=== PATIENT | male | born 1970 | race Caucasian/White ===

== ENCOUNTER 2017-04-20 22:15 | Emergency (ER) | payer BC ==
[2017-04-20] MEDS ORDERED: Nitroglycerin 0.4 MG Tab.SL SL ONE (22:22)
[2017-04-20] MEDS ORDERED: Alum Hydroxide/Mag Hydroxide 10 ML, Lidocaine 2% 10 ML, Promethazine 12.5 MG PO ONE ×3 (22:22)
[2017-04-20] MEDS ORDERED: Aspirin 81 MG Tab.Chew PO ONE (22:22)
[2017-04-20] MEDS ORDERED: Sodium Chloride 0.9% 10 ML Syringe FLUSH PRN (22:23)
[2017-04-20] MEDS ORDERED: Sodium Chloride 0.9% 1,000 ML IV ONE (22:26)
--- NOTE | 2017-04-20 22:33 | EDM.PDOC ---
ED HPI GENERAL MEDICAL PROBLEM - General Chief Complaint: Chest Pain Stated Complaint: CHEST PAINS Time Seen by Provider: 04/20/17 22:20 Source of Information: Reports: Patient, Family, RN, RN Notes Reviewed History Limitations: Reports: No Limitations - History of Present Illness INITIAL COMMENTS - FREE TEXT/NARRATIVE: Patient presents the emergency room at [facility] complaining of substernal chest pain that radiates down the left arm. The patient states his symptoms began around 9 PM this evening. The patient does not have any cardiac history. The patient does not have a primary care provider. The patient denies any past medical history. The patient thinks that some of the symptoms may be related to anxiety due to current situations in his family. The patient states that he feels somewhat short of breath. The patient does smoke on a regular basis. The patient denies any nausea vomiting or diarrhea. Patient denies any back pain. The patient denies any focal neurological deficits. The patient states that the substernal chest pain feels like a pressure. The arm pain feels sharp and stabbing. The patient did not take any medications prior to presentation. 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: Reports: Other (see below) (None) left upper chest/arm Pain Score (Numeric/FACES): 5 Left Arm Pain Score (Numeric/FACES): 5 - Related Data Allergies Allergy/AdvReac Type Severity Reaction Status Date / Time No Known Allergies Allergy Verified 04/20/17 22:40 Home Meds: Home Meds Tamsulosin HCl 0.4 mg PO DAILY 04/20/17 [History] Social & Family History - Tobacco Use Years of Tobacco use: 20 - Alcohol Use Days Per Week of Alcohol Use: 7 Number of Drinks Per Day: 2 Total Drinks Per Week: 14 - Recreational Drug Use Recreational Drug Use: No ED ROS GENERAL - Review of Systems Review Of Systems: See Below Constitutional: Denies: Fever, Chills, Weakness Respiratory: Reports: Shortness of Breath. Denies: Cough, Sputum Cardiovascular: Reports: Chest Pain, Dyspnea on Exertion. Denies: Palpitations GI/Abdominal: Denies: Abdominal Pain, Nausea, Vomiting Skin: Reports: No Symptoms Neurological: Reports: No Symptoms. Denies: Dizziness, Headache, Numbness, Paresthesia, Tingling ED EXAM, GENERAL - Physical Exam Exam: See Below Exam Limited By: No Limitations General Appearance: Alert, Anxious, Obese Respiratory/Chest: No Respiratory Distress, Decreased Breath Sounds, Wheezing Cardiovascular: Normal Peripheral Pulses, Regular Rate, Rhythm, No Murmur Peripheral Pulses: 2+: Radial (L), Radial (R) GI/Abdominal: Soft, Non-Tender, Abnormal Bowel Sounds (Hyperactive) Neurological: Alert, Oriented Skin Exam: Warm, Dry, Intact, Normal Color, No Rash EKG INTERPRETATION EKG Date: 04/20/17 Time: 22:20 Rhythm: NSR Rate (Beats/Min): 93 [place]: Normal P-Wave: Present QRS: Normal ST-T: Normal QT: Normal MN/PQ Interval: 0.15 Comparison: NA - No Prior EKG EKG Interpretation Comments: 1. Normal Sinus Rhythm 2. Normal ECG Course - Vital Signs Last Recorded V/S: Last Vital Signs Temp 35.7 C 04/20/17 22:15 Pulse 92 04/20/17 22:15 Resp 20 04/20/17 22:15 BP 145/94 H 04/20/17 22:45 Pulse Ox 97 04/20/17 22:15 - Orders/Labs/Meds Orders: Active Orders 24 hr Category Date Time Status EKG 12 Lead [EKG Documentation Completion] [RC] STAT Care 04/20/17 22:27 Ordered RT Aerosol Therapy [RC] ASDIRECTED Care 04/20/17 23:20 Active Chest 1V Frontal [CR] Stat Exams 04/20/17 22:20 Taken Sodium Chloride 0.9% [Saline Flush] Med 04/20/17 22:23 Active 10 ml FLUSH ASDIRECTED PRN Peripheral IV Insertion Adult [OM.PC] Routine Oth 04/20/17 22:23 Ordered Medication Orders Sodium Chloride (Saline Flush) 10 ml FLUSH ASDIRECTED PRN PRN Reason: Keep Vein Open Labs: Laboratory Tests 04/20/17 04/20/17 04/20/17 Range/Units 22:38 22:38 22:38 WBC 5.7 (4.0-10.0) x10^3/uL RBC 4.18 L (4.5-6.0) x10^6/uL Hgb 13.8 L (14.0-18.0) g/dL Hct 39.4 L (40.0-52.0) % MCV 94.3 H (78.0-93.0) fL MCH 33.0 H (26.0-32.0) pg MCHC 35.0 (32.0-36.0) g/dL RDW Coeff of Zina 14.0 (10.0-15.0) % Plt Count 139 (130-400) x10^3/uL Neut % (Auto) 40.7 L (50.0-80.0) % Lymph % (Auto) 40.3 (25.0-50.0) % [place] % (Auto) 11.7 H (2.0-11.0) % Eos % (Auto) 5.9 H (0.0-4.0) % Baso % (Auto) 1.4 H (0.2-1.2) % Sodium 144 (136-145) mmol/L Potassium 3.9 (3.5-5.1) mmol/L Chloride 107 (98-107) mmol/L Carbon Dioxide 25 (21-32) mmol/L BUN 20 H (7-18) mg/dL Creatinine 1.3 (0.70-1.30) mg/dL Est Cr Clr Drug Dosing TNP Estimated GFR (MDRD) 59 Glucose 103 (74-106) mg/dL Lactic Acid 1.1 (0.4-2.0) mmol/L Calcium 7.8 L (8.5-10.1) mg/dL Creatine Kinase 157 (39-308) U/L Creatine Kinase Index 1.1 (0.0-4.0) % CK-MB (CK-2) 1.7 (0.0-3.6) ng/mL POC Troponin I (0.00-0.08) ng/mL C-Reactive Protein < 0.2 (<=0.9) mg/dL Ethyl Alcohol 346 H* (0-3) mg/dL 04/20/17 Range/Units 22:42 WBC (4.0-10.0) x10^3/uL RBC (4.5-6.0) x10^6/uL Hgb (14.0-18.0) g/dL Hct (40.0-52.0) % MCV (78.0-93.0) fL MCH (26.0-32.0) pg MCHC (32.0-36.0) g/dL RDW Coeff of Zina (10.0-15.0) % Plt Count (130-400) x10^3/uL Neut % (Auto) (50.0-80.0) % Lymph % (Auto) (25.0-50.0) % [place] % (Auto) (2.0-11.0) % Eos % (Auto) (0.0-4.0) % Baso % (Auto) (0.2-1.2) % Sodium (136-145) mmol/L Potassium (3.5-5.1) mmol/L Chloride (98-107) mmol/L Carbon Dioxide (21-32) mmol/L BUN (7-18) mg/dL Creatinine (0.70-1.30) mg/dL Est Cr Clr Drug Dosing Estimated GFR (MDRD) Glucose (74-106) mg/dL Lactic Acid (0.4-2.0) mmol/L Calcium (8.5-10.1) mg/dL Creatine Kinase (39-308) U/L Creatine Kinase Index (0.0-4.0) % CK-MB (CK-2) (0.0-3.6) ng/mL POC Troponin I 0.01 (0.00-0.08) ng/mL C-Reactive Protein (<=0.9) mg/dL Ethyl Alcohol (0-3) mg/dL Meds: Medications Generic Name Dose Route Start Last Admin Trade Name Freq PRN Reason Stop Dose Admin Sodium Chloride 10 ml 04/20/17 22:23 Saline Flush FLUSH ASDIRECTED PRN Keep Vein Open Discontinued Medications Generic Name Dose Route Start Last Admin Trade Name Freq PRN Reason Stop Dose Admin Al Hydroxide/Mg Hydroxide 30 ml 04/20/17 22:42 04/20/17 22:53 Gi Cocktail PO 04/20/17 22:43 30 ml ONETIME ONE Administration Albuterol/Ipratropium 3 ml 04/20/17 23:20 04/20/17 23:25 Duoneb 3.0-0.5 Mg/3 Ml NEB 04/20/17 23:21 3 ml ONETIME ONE Administration Aspirin 324 mg 04/20/17 22:22 04/20/17 22:55 Aspirin PO 04/20/17 22:23 324 mg ONETIME ONE Administration Al Hydroxide/Mg Hydroxide 10 0 ml 04/20/17 22:22 ml/ Lidocaine HCl 10 ml/ PO 04/20/17 22:23 Promethazine HCl 12.5 mg ONETIME ONE Sodium Chloride 1,000 mls @ 999 mls/hr 04/20/17 22:26 04/20/17 22:50 Normal Saline IV 04/20/17 23:26 999 mls/hr ONETIME ONE Administration Lorazepam 1 mg 04/20/17 23:21 Ativan IVPUSH 04/20/17 23:22 ONETIME ONE Nitroglycerin 0.4 mg 04/20/17 22:22 04/20/17 22:45 Nitrostat SL 04/20/17 22:23 0.4 mg ONETIME ONE Administration - Radiology Interpretation Free Text/Narrative:: No acute findings - see scanned report in EMR Departure - Departure Time of Disposition: 23:24 Disposition: Home, Self-Care 01 Condition: Good Clinical Impression: Nonspecific chest pain Alcohol intoxication Qualifiers: Complication of substance-induced condition: uncomplicated Qualified Code(s): F10.920 - Alcohol use, unspecified with intoxication, uncomplicated Instructions: Alcohol Use Disorder, Nonspecific Chest Pain, [id number] Referrals: PCP,None [Primary Care Provider] - Forms: ED Department Discharge Additional Instructions: 1. Stay well hydrated and rest 2. Avoid alcohol, drinking makes your anxiety much worse 3. Avoid cigarette smoking 4. Blood work was ok today; EKG was normal 5. Establish care with a doctor to help with your refills 6. Call with any questions or concerns - Problem List Review Problem List Initiated/Reviewed/Updated: Yes - My Orders Last 24 Hours: My Active Orders 04/20/17 22:20 Chest 1V Frontal [CR] Stat 04/20/17 22:23 Sodium Chloride 0.9% [Saline Flush] 10 ml FLUSH ASDIRECTED PRN Peripheral IV Insertion Adult [OM.PC] Routine 04/20/17 22:27 EKG 12 Lead [EKG Documentation Completion] [RC] STAT 04/20/17 23:20 RT Aerosol Therapy [RC] ASDIRECTED - Assessment/Plan Last 24 Hours: My Active Orders 04/20/17 22:20 Chest 1V Frontal [CR] Stat 04/20/17 22:23 Sodium Chloride 0.9% [Saline Flush] 10 ml FLUSH ASDIRECTED PRN Peripheral IV Insertion Adult [OM.PC] Routine 04/20/17 22:27 EKG 12 Lead [EKG Documentation Completion] [RC] STAT 04/20/17 23:20 RT Aerosol Therapy [RC] ASDIRECTED Plan: Patient will be discharged home. Labs and EKG and x-ray were thoroughly discussed with the patient. I also discussed the patient's blood alcohol level with him. I recommended that he stop drinking or find a detox program. The patient had requested a refill of his inhaler and also Xanax which I pleasantly declined. I recommended to the patient that he establish care or see his regular doctor for any refills. Patient verbalized understanding. The patient was discharged in hemodynamic stable condition. The patient's chest pain had resolved prior to discharge. All questions answered
[2017-04-20] MEDS ORDERED: GI Cocktail Oral Solution 30 ML PO ONE (22:42)
[2017-04-20] MEDS ORDERED: Albuterol/Ipratropium 3.0-0.5 MG/3 ML Neb Soln NEB ONE (23:20)
[2017-04-20] MEDS ORDERED: LORazepam 2 MG/ML SDV IVPUSH ONE (23:21)
[2017-04-20 23:22] LABS: CHLORIDE,CL 107 mmol/L (98-107); SODIUM,NA 144 mmol/L (136-145)
== END 2017-04-20 23:42 | disposition home or self-care (01) ==
LOC: VM.ED 22:15
DX: R07.2 Precordial pain (principal); F10.120 Alcohol abuse with intoxication, uncomplicated; Z79.899 Other long term (current) drug therapy
CPT/HCPCS: 36415; 71010; 80048; 82550; 82553; 83605; 84484; 85025; 86140; 96361; 96374; 99285; A9270; G0480; J2060; J7030; 93005; 94640